=== PATIENT | male | born 1960 | race Caucasian/White ===

== ENCOUNTER → 2016-12-06 | Outpatient (CLI) | payer OTHER ==
[~2016-12-06] VITALS: Ht 162.6 cm; Wt 102.5 kg
[~2016-12-06] MED LIST: AMLO10TA2 PO; ATOR-26 PO; CRG125 PO; DEXT4CHW60 PO; INSDGI SC; LISI-725 PO; METF-384 PO; NVLGI SC; PLV75 PO; PROB500T8 PO
[2016-12-06 10:15] VITALS: BP 159/83; PULSE 97; Ht 162.6 cm; Wt 102.5 kg
== END | disposition home or self-care (01) ==
LOC: C.NEUR 09:05
PROVIDERS: ATTEND Internal Medicine Pulmonary Disease
DX: G47.33 Obstructive sleep apnea (adult) (pediatric) (principal)

== ENCOUNTER → 2017-12-06 | Outpatient (CLI) | payer OTHER ==
[~2017-12-06] VITALS: Ht 162.6 cm; Wt 104.9 kg
[2017-12-06 11:35] VITALS: BP 145/82; PULSE 82; Ht 162.6 cm; Wt 104.9 kg
== END | disposition home or self-care (01) ==
LOC: C.NEUR 09:22
PROVIDERS: ATTEND Internal Medicine Pulmonary Disease
DX: G47.33 Obstructive sleep apnea (adult) (pediatric) (principal)

== ENCOUNTER 2017-12-27 08:52 | Emergency (ER) | payer OTHER ==
[~2017-12-27] VITALS: Ht 162.6 cm; Wt 105.1 kg
[2017-12-27 09:02] VITALS: TEMP 37.1; Ht 162.6 cm; Wt 105.1 kg
[2017-12-27] MEDS ORDERED: NAPR1TAB9 PO (09:35)
[2017-12-27] MEDS ORDERED: CARV12.52 PO (09:39)
--- NOTE | 2017-12-27 10:01 | DIAGNOSTIC IMAGING REPORT ---
L KNEE 3 VIEWS CLINICAL HISTORY: 57 years-old Male presenting with pain. TECHNIQUE: Frontal, lateral, and sunrise views of the left knee were obtained. COMPARISON: Comparison made to plain radiographs of the right knee from 2016. FINDINGS: Minimal osteophytosis at the patellofemoral compartment. Knee joint effusion suggested. No acute fracture or malalignment. Joint space preserved. Atherosclerosis. IMPRESSION: 1. Degenerative changes of the patellofemoral compartment. 2. No acute osseous injury. Electronically signed by: Logan Allen M.D. 12/27/2017 10:00 AM Dictated Date/Time: 12/27/2017 9:59 AM
[2017-12-27 11:27] VITALS: BP 170/101; PULSE 98; O2SAT 96
--- NOTE | 2017-12-27 17:51 | EMERGENCY ROOM VISIT NOTE ---
ED Visit Note First contact with patient: 09:35 Chief Complaint: Left knee pain. History of Present Illness: Mr. Chapman is a 57-year-old white male who ambulates limping into the ED complaining of left lateral knee pain. Historically patient reports she has had no previous significant knee injuries or surgeries. Patient reports approximately 2-3 days ago he felt like his knee was going to buckle. He went out and brought a brace for his knee for support but he continued to have the same sensations. Patient reports when he was walking upstairs today to come to work he had an acute onset of severe pain. Patient reports approximately 2 hours while walking up the stairs he reports he started having pain over the lateral aspect of the knee that he describes "as if someone hit it with a sledgehammer." Since that time his pain has been constant. He places his discomfort over the lateral joint line. He rates his discomfort 9/10. His pain is nonradiating. His pain worsens with the last few degrees of extension, hyperextension and flexion beyond 90. He has not identified any alleviating factors related to the pain. He has been taken Aleve with minimal relief. 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 He denies back pain, hip pain, thigh pain, lower leg pain, ankle pain, foot pain , hip, ankle and foot weakness, leg weakness/numbness/tingling, recent direct or repetitive trauma. Review of Systems: As noted above in history of present illness. 8 body systems were reviewed and found to be negative as noted above. Past Medical History: Diabetes, heart disease, hypertension. Current Medications: Glucophage, Norvasc, NovoLog, Lantus, Zestril, glucose, Coreg, Aleve, Clopidogrel, Benemid. Allergies to Medications: Patient denies. Social History: Patient is currently employed; he feels safe in his home environment; he denies tobacco and alcohol use. Physical Examination: Vital Signs: Date Time Temp Pulse Resp B/P (MAP) Pulse Ox O2 Delivery O2 Flow Rate FiO2 12/27/17 11:27 98 170/101 96 12/27/17 09:02 37.1 109 17 196/81 95 Room Air GENERAL: 57-year-old male in mild to moderate distress due to pain, nontoxic- appearing, afebrile and hemodynamically stable. NEUROLOGICAL: Awake, alert and oriented to person, place and time. Answering questions appropriately and following commands. Good hand eye coordination. SKIN: Warm, dry and pink. No soft tissue eruptions or trauma noted. LEFT LOWER EXTREMITY: No gross bony deformity. No shortening or malrotation. No tenderness in the hip, thigh, lower leg, ankle or foot. Moderate tenderness over the lateral joint line with mild swelling. No bony deformity, bony crepitus, ecchymosis. Decreased range of motion in the knee as previously noted. Negative ballottement test. Questionable bounce test. Minimal laxity of the lateral collateral ligament. No laxity of the cruciate or medial collateral ligament. Throughout the lower leg the skin was warm pink with good capillary refill. Distal pulses are intact. Light sensation is intact. ED Course: Patient is assessed as noted above. Patient's medication list was reviewed. Patient was offered pain medication and refused. Left Knee X-Rays: Was read by myself and the radiologist showing no acute fractures or dislocations. Minimal osteophytosis of the patellofemoral compartment. No joint effusion. Joint space well preserved. Patient was placed in a knee immobilizer and on nonweightbearing crutches. Patient was educated about today's findings and instructed on his treatment plan ; he verbalizes understanding and agreement with this plan. Clinical Impression: Lateral collateral ligament sprain. Decision-Making: Initially my differential diagnosis I considered muscle sprain , contusion, ligamentous strain, degenerative joint disease, fracture, dislocation and other causes. Disposition: Patient discharged home in stable condition; prior to departure he was reassessed and subjectively reported he was feeling much better and rated his discomfort 2/10. Plan: Comfort measures were discussed with the patient including alternating ibuprofen and acetaminophen every 3 hours as needed for pain, ice on areas of pain 5-6 times a day, knee immobilizer and nonweightbearing crutch use. Patient was encouraged to follow-up with [facility] for recheck if no better in 7-10 days. Patient was encouraged to return the ED for worsening/uncontrolled pain, uncontrolled swelling, leg weakness/numbness/tingling or any new/concerning symptoms.
== END 2017-12-27 11:00 | disposition home or self-care (01) ==
LOC: C.EDB 08:54 → C.EDA 11:00
DX: S83.422A Sprain of lateral collateral ligament of left knee, initial encounter (principal); X58.XXXA Exposure to other specified factors, initial encounter; Y93.01 Activity, walking, marching and hiking; Y99.0 Civilian activity done for income or pay; E11.9 Type 2 diabetes mellitus without complications; Z79.4 Long term (current) use of insulin; I11.9 Hypertensive heart disease without heart failure; Z79.02 Long term (current) use of antithrombotics/antiplatelets

== ENCOUNTER 2020-11-05 23:28 | Observation (INO) ==
[2020-11-05] MEDS ORDERED: ASPIRIN 81 MG CHEW PO STA (23:39)
[2020-11-05] MEDS ORDERED: NITROGLYCERIN 2% OINTMENT 30GM TUBE EXT ONE (23:39)
[2020-11-05] MEDS ORDERED: NITROGLYCERIN SL 0.4 MG/TAB TAB SL STA (23:39)
--- NOTE | 2020-11-05 23:48 | Emergency Department Note ---
Impression & Plan Substernal chest pain ED Provider Note Name: IRVING TAPIA Age: 60 Sex: M Arrives Via: Walk-In Informant: Patient ED Provider: Jasvir Ponce MD Chief Complaint: Chest Pain Impression: Substernal Chest Pain Medical Decision Makin yr old male with DMII, CAD, HTN, Gout, HLD, Myxofibrosarcoma arrives with intermittent substernal chest pain increasing since this morning. History cardiac stent 5 yrs ago without intervention since. EKG without ischemia. SLNTG given with improvement in symptoms. ASA given. Initial trop and other labs OK. CXR clear. Note consistent with PE nor dissection. Stable. No evidence of infection on examination nor work up. Hospitalist consulted given high risk ACS, though hole on heparing given initial work-up findings. Prior Medical Record and Triage/Nursing Notes reviewed by Me Additional history obtained from chart and registered dietician notes Differentials:Cardiac ischemia, aortic dissection, pulmonary embolism, pneumothorax, pneumonia, pericarditis, myocarditis, esophageal rupture, GERD, cholecystitis, pancreatitis, musculoskeletal, as well as other pathologies. Vital Signs: reviewed and remarkable for HTN Interventions: SLNTG, ASA 324mg PO Labs:Reviewed and remarkable for no significant abnormalities Imaging:X ray results are stated below per my interpretation: Chest: 1 view: No infiltrate, no effusion, normal cardiac border. EKG:Per My Interpretation: Indication chest pain: NSR 81 bpm, qtc 429, this is mild qrs widening. No Ectopy. No Ischemia. Compared to EKG 12/31/19, no significant changes. Cardiac/Tele Monitoring: Cardiac Monitoring: An Order was placed for continuous cardiac monitoring. The monitor shows a rate of 80 with a normal sinus rhythm. Consults:Dr Braxton WILL Hospitalist Plan: Disposition:Hospitalization. Condition: Good History of Present Illness:60 yr old male with history DMII, CAD, HTN, Gout, HLD, Myxofibrosarcoma arrives for evaluation of chest pain. Patient notes 12 hours of intermittent gradually worsening chest pain. Notes substernal and radiates a bit to back. Sharp and tight in nature. Better with rest, worse with exertion and deep breath. No radiation to arm/leg/jaw. Denies syncope, palpitations, nausea, vomiting, syncope, abdominal pain, low back pain, new leg swelling, headache, neck pain, fevers, chills, cough, shortness of breath, urina ry/bowel changes, nor other symptoms. SLNTG prior to arrival improvement of chest pain. History of CAD with [place] 2016 with stent placed. Notes he was feeling well prior to this morning. The last week he was feeling well without REINOSO nor other symptoms. No known covid exposures. Patient admits BSG running in 200s recently ROS: See above HPI for pertinent positives & negatives. A total of 10 systems reviewed and were otherwise negative. 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 EYES: No scleral icterus, unremarkable pupils. ENT: Mucous membranes moist, no nasal congestion. NECK: No masses appreciated, nomeningismus, trachea is midline. RESPIRATORY: No dyspnea. Clear to auscultation and equal bilaterally. No wheeze, no rhonchi. CARDIOVASCULAR: Regular rate and rhythm.No murmurs, rubs, gallops appreciated. GASTROINTESTINAL: Abdomen soft, non-tender, no peritonitis.Bowel sounds positive.No masses appreciated. BACK: No midline tenderness, no CVA tenderness EXTREMITIES: Normal motion all extremities, no cyanosis, mild bilateral lower leg edema. NEUROLOGIC: Alert and oriented, no acute motor or sensory deficits, no focal weakness, cranial nerves grossly intact. SKIN: No rash, no jaundice, no diaphoresis. PSYCH: Appropriate GCS: 15 ED Course: Times/Reassessments: Stable, feeling improved post SLNTG. 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 Other Information That Helps Us Care for You: No Feels Safe at Home: Yes Safety Concerns: Feels Safe At This Time Assistive Devices: CPAP Allergies Allergies Allergy/AdvReac Type Severity Reaction Status Date / Time No Known Drug Allergies Allergy Unknown Verified 11/05/20 23:46 Home Meds Home Medications Medication Instructions Recorded Confirmed amlodipine 10 mg tablet 10 mg PO DAILY #30 tab 07/25/19 11/05/20 aspirin 81 mg tablet,delayed 81 mg PO DAILY #30 tab 07/25/19 11/05/20 release furosemide 40 mg tablet 40 mg PO DAILY tab 07/25/19 11/05/20 lisinopril 40 mg tablet 40 mg PO DAILY tab 07/25/19 11/05/20 metformin 1,000 mg tablet 1,000 mg PO BID tab 07/25/19 11/05/20 multivitamin 1 tab PO DAILY 07/25/19 11/05/20 probenecid 500 mg tablet 500 mg PO BID tab 07/25/19 11/05/20 carvedilol 25 mg tablet 50 mg PO BID tab 11/06/19 11/05/20 atorvastatin 80 mg tablet 40 mg PO QPM tab 12/31/19 11/05/20 glucose 4 gram chewable tablet 4 gm PO Q15M PRN 12/31/19 11/05/20 isosorbide mononitrate 60 mg 30 mg PO DAILY tab 12/31/19 11/05/20 tablet,extended release 24 hr insulin aspart U-100 100 unit/mL See Rx Instructions SQ DAILY ml 02/25/20 11/05/20 (3 mL) subcutaneous pen insulin glargine 100 unit/mL 36 units SQ HS ml 02/25/20 11/05/20 subcutaneous solution spironolactone 25 mg tablet 25 mg PO DAILY 02/25/20 11/05/20 Results & Data (ED) Vital Signs Vital Signs - 24 hr 11/05/20 23:30 11/05/20 23:39 11/06/20 00:00 Temperature 37.3 C Temperature Source Temporal Artery Scan Pulse Rate 87 78 79 Pulse Rate from SpO2 Sensor 78 78 Respiratory Rate 18 22 24 Respiratory Effort / Characteristics Non-Labored Respiratory Depth Normal Blood Pressure 176/84 H 175/92 H 130/78 Blood Pressure Mean 114 120 92 Pulse Oximetry 98 97 96 Oxygen Delivery Method Room Air Room Air Room Air Sepsis Recent Fever Within 48 Hours No Sepsis New/Unexplained Change in Mental Status No Sepsis Action Taken by Nursing No Action Required 11/06/20 00:30 Temperature Temperature Source Pulse Rate 73 Pulse Rate from SpO2 Sensor 73 Respiratory Rate 24 Respiratory Effort / Characteristics Respiratory Depth Blood Pressure 142/84 H Blood Pressure Mean 94 Pulse Oximetry 96 Oxygen Delivery Method Room Air Sepsis Recent Fever Within 48 Hours Sepsis New/Unexplained Change in Mental Status Sepsis Action Taken by Nursing Laboratory Data Result diagrams: 11/05/20 23:42 11/05/20 23:42 Lab Results 11/05/20 11/05/20 11/05/20 Range/Units 23:42 23:42 23:42 WBC 12.22 H (4.8-10.8) K/uL RBC 4.66 L (4.7-6.1) M/uL Hgb 13.5 L (14.0-18.0) g/dL Hct 41.0 L (42-52) % MCV 88.0 (80-100) fL MCH 29.0 (25-34) pg MCHC 32.9 (32-36) g/dL RDW Std Deviation 45.4 (36.4-46.3) fL RDW Coeff of Nemo 14.1 (11.5-14.5) % Plt Count 352 (130-400) K/uL MPV 9.7 (7.4-10.4) fL Immature Gran % (Auto) 0.2 % Neut % (Auto) 62.3 % Lymph % (Auto) 24.1 % Morris % (Auto) 10.7 % Eos % (Auto) 2.4 % Baso % (Auto) 0.3 % Neut # (Auto) 7.62 H (1.4-6.5) K/uL Lymph # (Auto) 2.94 (1.2-3.4) K/uL Morris # (Auto) 1.31 H (0.11-0.59) K/uL Eos # (Auto) 0.29 (0-0.5) K/uL Baso # (Auto) 0.04 (0-0.2) K/uL Immature Gran # (Auto) 0.02 (0.00-0.02) K/uL PT 12.0 (9.0-12.0) Seconds INR 1.1 (0.9-1.1) APTT 25.4 (21.0-31.0) Seconds PTT Ratio 0.9 D-Dimer 340 (0-500) ug/L FEU Sodium 136 (136-145) mmol/L Potassium 3.8 (3.5-5.1) mmol/L Chloride 102 (98-107) mmol/L Carbon Dioxide 28 (21-32) mmol/L Anion Gap 7.0 (3-11) BUN 25 H (7-18) mg/dl Creatinine 1.49 H (0.6-1.4) mg/dl Est Cr Clr Drug Dosing 58.2 ml/min Est GFR ( Amer) 58.7 Est GFR (Non-Af Amer) 50.6 BUN/Creatinine Ratio 17.0 (10-20) Glucose 164 H (70-99) mg/dl Calcium 10.6 H (8.5-10.1) mg/dl Magnesium 2.0 (1.8-2.4) mg/dl Total Bilirubin 0.6 (0.2-1) mg/dl Direct Bilirubin 0.3 H (0-0.2) mg/dl AST 13 L (15-37) U/L ALT 32 (12-78) U/L Alkaline Phosphatase 111 (45-117) U/L Troponin I < 0.015 (0-0.045) ng/ml Total Protein 8.5 H (6.4-8.2) gm/dl Albumin 4.0 (3.4-5.0) gm/dl Lipase 571 H (73-393) U/L COVID-19 Eval Order SARS-CoV-2, RNA, NAAT (NEGATIVE) 11/06/20 11/06/20 Range/Units 00:00 00:00 WBC (4.8-10.8) K/uL RBC (4.7-6.1) M/uL Hgb (14.0-18.0) g/dL Hct (42-52) % MCV (80-100) fL MCH (25-34) pg MCHC (32-36) g/dL RDW Std Deviation (36.4-46.3) fL RDW Coeff of Nemo (11.5-14.5) % Plt Count (130-400) K/uL MPV (7.4-10.4) fL Immature Gran % (Auto) % Neut % (Auto) % Lymph % (Auto) % Morris % (Auto) % Eos % (Auto) % Baso % (Auto) % Neut # (Auto) (1.4-6.5) K/uL Lymph # (Auto) (1.2-3.4) K/uL Morris # (Auto) (0.11-0.59) K/uL Eos # (Auto) (0-0.5) K/uL Baso # (Auto) (0-0.2) K/uL Immature Gran # (Auto) (0.00-0.02) K/uL PT (9.0-12.0) Seconds INR (0.9-1.1) APTT (21.0-31.0) Seconds PTT Ratio D-Dimer (0-500) ug/L FEU Sodium (136-145) mmol/L Potassium (3.5-5.1) mmol/L Chloride (98-107) mmol/L Carbon Dioxide (21-32) mmol/L Anion Gap (3-11) BUN (7-18) mg/dl Creatinine (0.6-1.4) mg/dl Est Cr Clr Drug Dosing ml/min Est GFR ( Amer) Est GFR (Non-Af Amer) BUN/Creatinine Ratio (10-20) Glucose (70-99) mg/dl Calcium (8.5-10.1) mg/dl Magnesium (1.8-2.4) mg/dl Total Bilirubin (0.2-1) mg/dl Direct Bilirubin (0-0.2) mg/dl AST (15-37) U/L ALT (12-78) U/L Alkaline Phosphatase (45-117) U/L Troponin I (0-0.045) ng/ml Total Protein (6.4-8.2) gm/dl Albumin (3.4-5.0) gm/dl Lipase (73-393) U/L COVID-19 Eval [facility] SARS-CoV-2, RNA, NAAT NEGATIVE (NEGATIVE) Administered Medications Sodium Chloride (Nss 1000ml) 1,000 mls @ 80 mls/hr IV .[id number] AMBER Stop: 11/06/20 14:04 Last Admin: 11/06/20 02:15 Dose: 80 mls/hr Documented by: [id number] Discontinued Medications Aspirin (Aspirin 81 Mg Chew) 324 mg PO NOW STA Stop: 11/05/20 23:40 Last Admin: 11/05/20 23:45 Dose: 324 mg Documented by: [id number] Nitroglycerin (Nitroglycerin Sl 0.4 Mg/Tab Tab) 0.4 mg SL NOW STA Stop: 11/05/20 23:40 Last Admin: 11/05/20 23:47 Dose: 0.4 mg Documented by: [id number] Nitroglycerin (Nitroglycerin 2% Ointment 30gm Tube) 1 inch EXT NOW ONE Stop: 11/05/20 23:40 Last Admin: 11/05/20 23:46 Dose: 1 inch Documented by: [id number] Discharge Plan Visit Data Chief Complaint: Chest Pain Stated Complaint: CHEST PAIN ED Provider: Jasvir Ponce Discharge Problem: Substernal chest pain Patient Disposition: Admitted As Inpatient Discharge Instructions Interventions: ED Discharge Assessment Last Done: 11/06/20 01:30
[2020-11-05 23:55] LABS: Basophils # (auto) 0.04 K/uL (0-0.2); Basophils % (auto) 0.3 %; Eosinophils # (auto) 0.29 K/uL (0-0.5); Eosinophils % (auto) 2.4 %; Hemoglobin 13.5 g/dL (14.0-18.0); Immature Granulocytes # (auto) 0.02 K/uL (0.00-0.02); Immature Granulocytes % (auto) 0.2 %; Lymphocytes # (auto) 2.94 K/uL (1.2-3.4); Lymphocytes % (auto) 24.1 %; Mean Corpuscular Hgb Conc 32.9 g/dL (32-36); Mean Platelet Volume 9.7 fL (7.4-10.4); Monocytes # (auto) 1.31 K/uL (0.11-0.59); Monocytes % (auto) 10.7 %; Neutrophils # (auto) 7.62 K/uL (1.4-6.5); Neutrophils % (auto) 62.3 %; Platelet Count 352 K/uL (130-400); RDW Coefficient of Variation 14.1 % (11.5-14.5); RDW Standard Deviation 45.4 fL (36.4-46.3); Red Blood Count 4.66 M/uL (4.7-6.1); White Blood Count 12.22 K/uL (4.8-10.8)
[2020-11-06 00:07] LABS: D Dimer 340 ug/L FEU (0-500); INR 1.1 (0.9-1.1); Partial Thromboplastin Ratio 0.9; Partial Thromboplastin Time 25.4 Seconds (21.0-31.0)
[2020-11-06 00:17] LABS: Alanine Aminotransferase 32 U/L (12-78); Aspartate Aminotransferase 13 U/L (15-37); Bilirubin Direct 0.3 mg/dl (0-0.2); Blood Urea Nitrogen 25 mg/dl (7-18); Calcium 10.6 mg/dl (8.5-10.1); Carbon Dioxide 28 mmol/L (21-32); Chloride 102 mmol/L (98-107); Creatinine Clr Calc Pharmacy 58.2 ml/min; Est GFR (African American) 58.7; Est GFR (Non-African American) 50.6; Glucose 164 mg/dl (70-99); Lipase 571 U/L (73-393); Potassium 3.8 mmol/L (3.5-5.1); Sodium 136 mmol/L (136-145)
[2020-11-06 00:22] LABS: Alkaline Phosphatase 111 U/L (45-117); Bilirubin,Total 0.6 mg/dl (0.2-1); Total Protein 8.5 gm/dl (6.4-8.2); Troponin I < 0.015 ng/ml (0-0.045)
[2020-11-06] MEDS ORDERED: GLUCOSE 40% GEL 15 GM TUBE PO PRN (01:35)
[2020-11-06] MEDS ORDERED: SODIUM CHLORIDE 0.9% 1000ML 1,000 ML IV SCH (01:35)
[2020-11-06] MEDS ORDERED: CARBOHYDRATES FOR HYPOGLYCEMIA PO PRN (01:35)
[2020-11-06] MEDS ORDERED: GLUCOSE 10 TABS/TUBE PO PRN (01:35)
[2020-11-06] MEDS ORDERED: MoRPHine SULFATE 2 MG/ML CARP IV PRN (01:35)
[2020-11-06] MEDS ORDERED: DEXTROSE 50% 50 ML SYRINGE IV PRN (01:35)
[2020-11-06] MEDS ORDERED: GLUCAGON FOR INJ 1 MG VIAL SQ PRN (01:35)
[2020-11-06] MEDS ORDERED: ONDANSETRON INJ 2 MG/ML 2 ML VIAL IV PRN (01:35)
[2020-11-06] MEDS ORDERED: ACETAMINOPHEN 325 MG TAB PO PRN (01:35)
--- NOTE | 2020-11-06 02:59 | History & Physical Report ---
Date of Service November 06, 2020 Assessment & Plan (1) Unstable angina: Unstable angina/CAD/PCI in 2016/hypertension- The patient will be admitted to telemetry for serial cardiac enzymes, serial EKG's, cardiac rhythm monitoring and a 2-D echocardiogram with Dopplers. Continue amlodipine 10 mg daily, aspirin 81 mg daily, carvedilol 50 mg p.o. twice daily, isosorbide mononitrate extended release 30 mg every morning and lisinopril 40 mg p.o. daily. Temporarily hold furosemide and spironolactone due to acute kidney injury. Nitropaste 1 inch anterior chest wall every 6 hours. Nitroglycerin sublingual Every 5 minutes as needed chest pain Consult his blower operator Dr. Oseas Root. Present on Admission?: Yes (2) CAD in [place] artery: See above Present on Admission?: Yes (3) History of heart artery stent: See above Present on Admission?: Yes (4) Hypertension: See above Present on Admission?: Yes (5) Acute kidney injury: Creatinine 1.49 upon admission, with baseline 1.2. Give 1 L normal saline at 100 mils per hour. Hold furosemide and spironolactone for now Present on Admission?: Yes (6) Diabetes: Continue Lantus insulin 36 units subcu at bedtime. Hold Metformin. Placed on Accu-Cheks before meals and at bedtime with NovoLog coverage per scale Present on Admission?: Yes (7) Pure hypercholesterolemia: Continue atorvastatin 40 mg every evening. Check a fasting lipid panel Present on Admission?: Yes (8) Gout: Continue probenecid Present on Admission?: Yes (9) Obstructive sleep apnea: Will use CPAP at at bedtime as needed Present on Admission?: Yes Admission and Anticipated Discharge Date Admission Date: November 06, 2020 History of Present Illness Chief Complaint: The patient presents to the emergency department with report of acute onset of substernal chest pain that began around 10:00 this morning, and has been persistent throughout the day, with worsening symptoms this evening. Primary Care Provider: Oseas Root MD The patient is a 60-year-old male with a past medical history including myxofibrosarcoma of skin, CAD of [place] coronary artery, gout, [place], hypercholesterolemia, diabetes mellitus, hypertension, stented coronary artery, and presyncope. The patient presents to the emergency department symptoms as noted above. Allergies Allergy/AdvReac Type Severity Reaction Status Date / Time No Known Drug Allergies Allergy Unknown Verified 11/05/20 23:46 Home Medications Medication Instructions Recorded Confirmed Type amlodipine 10 mg tablet 10 mg PO DAILY #30 tab 07/25/19 11/05/20 History aspirin 81 mg tablet,delayed 81 mg PO DAILY #30 tab 07/25/19 11/05/20 History release furosemide 40 mg tablet 40 mg PO DAILY tab 07/25/19 11/05/20 History lisinopril 40 mg tablet 40 mg PO DAILY tab 07/25/19 11/05/20 History metformin 1,000 mg tablet 1,000 mg PO BID tab 07/25/19 11/05/20 History multivitamin 1 tab PO DAILY 07/25/19 11/05/20 History probenecid 500 mg tablet 500 mg PO BID tab 07/25/19 11/05/20 History carvedilol 25 mg tablet 50 mg PO BID tab 11/06/19 11/05/20 History atorvastatin 80 mg tablet 40 mg PO QPM tab 12/31/19 11/05/20 History glucose 4 gram chewable tablet 4 gm PO Q15M PRN 12/31/19 11/05/20 History isosorbide mononitrate 60 mg 30 mg PO DAILY tab 12/31/19 11/05/20 History tablet,extended release 24 hr insulin aspart U-100 100 unit/mL See Rx Instructions SQ DAILY ml 02/25/20 11/05/20 History (3 mL) subcutaneous pen insulin glargine 100 unit/mL 36 units SQ HS ml 02/25/20 11/05/20 History subcutaneous solution spironolactone 25 mg tablet 25 mg PO DAILY 02/25/20 11/05/20 History Past Med/Surg History Medical History (Updated 11/06/20 @ 02:53 by Thierry Limon MD) Myxofibrosarcoma of skin Family History Sister Breast cancer Diabetes Heart disease Social History Smoking Status: Never smoker Second Hand Exposure: No; Do You Dip or Chew Tobacco: No; Hx Alcohol Use: Yes Hx Substance Use: No Preferred Language: Hebrew Communication Ability: Effective Beliefs That Will Affect Care: None marital status: Single Current Living Situation: Family current occupational status: employed 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 Other Information That Helps Us Care for You: No Feels Safe at Home: Yes Safety Concerns: Feels Safe At This Time Assistive Devices: CPAP Review of Systems Review of Systems: The patient denies palpitations, shortness of breath, dyspnea on exertion, cough, lower extremity swelling, sore throat, fevers, chills, sweats, weight change, fatigue, nausea, vomiting, diarrhea , constipation, abdominal pain, pelvic pain, blood in urine or stool, dysuria, urinary frequency or urgency, lightheadedness, dizziness, headache, memory loss, loss of consciousness, rash, abnormal bruising or bleeding, imbalance, focal or generalized weakness, numbness or tingling in arms or legs, generalized arthralgias or myalgias, back or neck pain, or night sweats. The review of systems is otherwise negative other than for that already noted above, and at least 10 systems have been reviewed. Physical Exam Physical Exam: The patient is awake, alert and oriented 3, well developed and well nourished, normocephalic and atraumatic, lying in bed and in no acute distress. HEENT--PERRL, EOMI, mucous membranes and oropharynx normal. Neck--supple. No JVD. No bruits. Thyroid normal, trachea midline, no adenopathy. Heart--normal S1 and S2. No murmurs, rubs or gallops. Lungs--clear bilaterally, no respiratory distress, no accessory muscle use. Abdomen--normal bowel sounds and soft. Nontender. Nondistended. Obese Extremities--no cyanosis or clubbing. No edema. Dermatologic--normal skin turgor, normal color, no abnormal lymph nodes, no rash. Neurologic--cranial nerves II through XII grossly intact. Rheumatologic--normal range of motion. Psychiatric--normal affect. Results & Data Results & Data ([facility]) Vital Signs (Past 12 Hours) Vital Signs Temp Pulse Resp BP Pulse Ox 11/06/20 02:40 68 11/06/20 01:52 97.9 F 95 11/06/20 01:30 73 18 154/75 H 95 11/06/20 00:30 73 24 142/84 H 96 11/06/20 00:00 79 24 130/78 96 11/05/20 23:39 78 22 175/92 H 97 11/05/20 23:30 99.1 F 87 18 176/84 H 98 Laboratory Results Laboratory Results WBC 12.22 K/uL (4.8-10.8) H 11/05/20 23:42 RBC 4.66 M/uL (4.7-6.1) L 11/05/20 23:42 Hgb 13.5 g/dL (14.0-18.0) L 11/05/20 23:42 Hct 41.0 % (42-52) L 11/05/20 23:42 MCV 88.0 fL (80-100) 11/05/20 23:42 MCH 29.0 pg (25-34) 11/05/20 23:42 MCHC 32.9 g/dL (32-36) 11/05/20 23:42 RDW Std Deviation 45.4 fL (36.4-46.3) 11/05/20 23:42 RDW Coeff of [place] 14.1 % (11.5-14.5) 11/05/20 23:42 Plt Count 352 K/uL (130-400) 11/05/20 23:42 MPV 9.7 fL (7.4-10.4) 11/05/20 23:42 Immature Gran % (Auto) 0.2 % 11/05/20 23:42 Neut % (Auto) 62.3 % 11/05/20 23:42 Lymph % (Auto) 24.1 % 11/05/20 23:42 [place] % (Auto) 10.7 % 11/05/20 23:42 Eos % (Auto) 2.4 % 11/05/20 23:42 Baso % (Auto) 0.3 % 11/05/20 23:42 Neut # (Auto) 7.62 K/uL (1.4-6.5) H 11/05/20 23:42 Lymph # (Auto) 2.94 K/uL (1.2-3.4) 11/05/20 23:42 [place] # (Auto) 1.31 K/uL (0.11-0.59) H 11/05/20 23:42 Eos # (Auto) 0.29 K/uL (0-0.5) 11/05/20 23:42 Baso # (Auto) 0.04 K/uL (0-0.2) 11/05/20 23:42 Immature Gran # (Auto) 0.02 K/uL (0.00-0.02) 11/05/20 23:42 PT 12.0 Seconds (9.0-12.0) 11/05/20 23:42 INR 1.1 (0.9-1.1) 11/05/20 23:42 APTT 25.4 Seconds (21.0-31.0) 11/05/20 23:42 PTT Ratio 0.9 11/05/20 23:42 D-Dimer 340 ug/L FEU (0-500) 11/05/20 23:42 Sodium 136 mmol/L (136-145) 11/05/20 23:42 Potassium 3.8 mmol/L (3.5-5.1) 11/05/20 23:42 Chloride 102 mmol/L (98-107) 11/05/20 23:42 Carbon Dioxide 28 mmol/L (21-32) 11/05/20 23:42 Anion Gap 7.0 (3-11) 11/05/20 23:42 BUN 25 mg/dl (7-18) H 11/05/20 23:42 Creatinine 1.49 mg/dl (0.6-1.4) H 11/05/20 23:42 Est Cr Clr Drug Dosing 58.2 ml/min 11/05/20 23:42 Est GFR ( Amer) 58.7 11/05/20 23:42 Est GFR (Non-Af Amer) 50.6 11/05/20 23:42 BUN/Creatinine Ratio 17.0 (10-20) 11/05/20 23:42 Glucose 164 mg/dl (70-99) H 11/05/20 23:42 Calcium 10.6 mg/dl (8.5-10.1) H 11/05/20 23:42 Magnesium 2.0 mg/dl (1.8-2.4) 11/05/20 23:42 Total Bilirubin 0.6 mg/dl (0.2-1) 11/05/20 23:42 Direct Bilirubin 0.3 mg/dl (0-0.2) H 11/05/20 23:42 AST 13 U/L (15-37) L 11/05/20 23:42 ALT 32 U/L (12-78) 11/05/20 23:42 Alkaline Phosphatase 111 U/L (45-117) 11/05/20 23:42 Troponin I < 0.015 ng/ml (0-0.045) 11/05/20 23:42 Total Protein 8.5 gm/dl (6.4-8.2) H 11/05/20 23:42 Albumin 4.0 gm/dl (3.4-5.0) 11/05/20 23:42 Lipase 571 U/L (73-393) H 11/05/20 23:42 COVID-19 Eval Order Covid19 [facility] 11/06/20 00:00 SARS-CoV-2, RNA, NAAT NEGATIVE (NEGATIVE) 11/06/20 00:00 Code Status & VTE Plan Code Status Full code VTE Prophylaxis Plan VTE Prophylaxis will be ordered: Yes PG Care Time/CCT Total # of Minutes Spent Total Time Spent with Patient: Total time spent is greater than 50% in coordination of care (as documented) at patient's floor/unit and/or counseling patient: Coding Level of Care Code 58433 Initial Inpt Care Lvl 3 Diagnoses Unstable angina I20.0 CAD in [place] artery I25.10 History of heart artery stent Z95.5 Hypertension I10 Acute kidney injury N17.9 Diabetes E11.9 Pure hypercholesterolemia E78.00 Gout M10.9 Obstructive sleep apnea G47.33
[2020-11-06 05:41] LABS: Albumin Level 3.5 gm/dl (3.4-5.0); BUN Creatinine Ratio 17.7 (10-20); Blood Urea Nitrogen 24 mg/dl (7-18); Calcium 9.6 mg/dl (8.5-10.1); Carbon Dioxide 30 mmol/L (21-32); Chloride 106 mmol/L (98-107); Creatinine Clr Calc Pharmacy 62.9 ml/min; Est GFR (African American) 64.4; Est GFR (Non-African American) 55.6; Glucose 124 mg/dl (70-99); Magnesium 2.2 mg/dl (1.8-2.4); Potassium 4.1 mmol/L (3.5-5.1); Sodium 140 mmol/L (136-145)
[2020-11-06 05:46] LABS: Phosphorus 4.7 mg/dl (2.5-4.9); Troponin I < 0.015 ng/ml (0-0.045)
[2020-11-06] MEDS: NITROGLYCERIN 2% OINTMENT 30GM TUBE EXT SCH ×3 (05:51→18:08)
[2020-11-06 06:07] LABS: Estimated Average Glucose 200 mg/dl; Hemoglobin A1C 8.6 % (4.5-5.6)
[2020-11-06] MEDS: INSULIN ASPART 100 UNITS/ML 3 ML PEN SC SCH ×4 (07:48→20:26)
--- NOTE | 2020-11-06 07:54 | Electrocardiogram Report ---
Test Reason : Blood Pressure : / mmHG Vent. Rate : 081 BPM Atrial Rate : 081 BPM P-R Int : 194 ms QRS Dur : 118 ms QT Int : 370 ms P-R-T Axes : 034 -30 098 degrees QTc Int : 429 ms Normal sinus rhythm Left axis deviation Left ventricular hypertrophy with QRS widening and repolarization abnormality Abnormal ECG When compared with ECG of 29-AUG-2016 06:24, QRS duration has increased Nonspecific T wave abnormality no longer evident in Inferior leads Confirmed by Josué Barba ([id number]) on 11/06/2020 7:54:01 AM Referred By: REFERRED SELF Confirmed By:Josué Barba
[2020-11-06] MEDS: ASPIRIN 81 MG ECTAB PO SCH (08:13)
[2020-11-06] MEDS: lisinopril 40 MG TAB PO SCH (08:14)
[2020-11-06] MEDS: PROBENECID 500 MG TAB PO SCH ×2 (08:14→20:19)
[2020-11-06] MEDS: MULTIVITAMIN TAB PO SCH (08:14)
[2020-11-06] MEDS: amLODIPine BESYLATE 5 MG TAB PO SCH (08:14)
[2020-11-06] MEDS: ISOSORBIDE MONO EXTENDED REL 30 MG TABCR PO SCH (08:15)
[2020-11-06] MEDS: FUROSEMIDE 40 MG TAB PO SCH (08:15)
[2020-11-06] MEDS: SPIRONOLACTONE 25 MG TAB PO SCH (08:15)
[2020-11-06] MEDS: carvediloL 25 MG TAB PO SCH ×2 (08:15→20:18)
--- NOTE | 2020-11-06 08:39 | XRay Report ---
XR chest 1V portable HISTORY: 60 years-old Male Chest pain, Shortness of breath acute chest pain with shortness of breath COMPARISON: Chest radiograph 08/28/2016 TECHNIQUE: Portable AP view of the chest FINDINGS: Cardiomediastinal and hilar silhouettes are within normal limits. No pneumothorax, pleural effusion, airspace consolidation or overt pulmonary edema. Bones of the chest appear grossly intact. IMPRESSION: No acute process. ACT 112: Negative or not required by law. The above report was generated using voice recognition software. It may contain grammatical, syntax o r spelling errors. Electronically signed by: Hakeme Vale M.D. 11/06/2020 8:38 AM
[2020-11-06] MEDS ORDERED: INSULIN ASPART 100 UNITS/ML 3 ML PEN SQ SCH (09:00)
[2020-11-06 14:35] LABS: BUN Creatinine Ratio 13.1 (10-20); Blood Urea Nitrogen 21 mg/dl (7-18); Calcium 9.3 mg/dl (8.5-10.1); Carbon Dioxide 31 mmol/L (21-32); Chloride 103 mmol/L (98-107); Creatinine Clr Calc Pharmacy 52.9 ml/min; Est GFR (African American) 52.3; Est GFR (Non-African American) 45.1; Glucose 201 mg/dl (70-99); Potassium 4.3 mmol/L (3.5-5.1); Sodium 137 mmol/L (136-145)
[2020-11-06 14:40] LABS: Troponin I < 0.015 ng/ml (0-0.045)
--- NOTE | 2020-11-06 15:34 | Hospitalist Progress Note ---
Date of Service November 06, 2020 Assessment & Plan (1) Unstable angina: Unstable angina/CAD/PCI in 2016/hypertension- Continue amlodipine 10 mg daily, aspirin 81 mg daily, carvedilol 50 mg p.o. twice daily, isosorbide mononitrate extended release 30 mg every morning and lisinopril 40 mg p.o. daily Temporarily hold furosemide and spironolactone due to acute kidney injury. Nitropaste 1 inch anterior chest wall every 6 hours. Nitroglycerin sublingual Every 5 minutes as needed chest pain ECHO with EF 55-60% and no major wall motion abnormalities Trop neg x3 Awaiting cardiology c/s Of note, lipase with mild elevation at 571 on admission--possibly mild acute pancreatitis causing sx?? No issues with PO (2) CAD in [place] artery: See above (3) History of heart artery stent: See above (4) Hypertension: See above (5) Acute kidney injury: Creatinine 1.49 upon admission, with baseline 1.2. Give 1 L normal saline at 100 mils per hour. Hold furosemide and spironolactone for now Repeat this afternoon is actually higher at 1.6 Resume IVF, but at a lower level given hx of diuretic use that is on hold due to renal function (6) Diabetes: Continue Lantus insulin 36 units subcu at bedtime. Hold Metformin. Placed on Accu-Cheks before meals and at bedtime with NovoLog coverage per scale A1c 8.6 (7) Pure hypercholesterolemia: Continue atorvastatin 40 mg every evening. Check a fasting lipid panel (8) Gout: Continue probenecid (9) Obstructive sleep apnea: Will use CPAP at at bedtime as needed Admission and Anticipated Discharge Date Admission Date: November 06, 2020 Subjective Pt states he continues to have "twinges" of chest pain at rest, but it is nothing like the chest pain he was having [employer]. No SOB with this. Tolerating PO without issue. Pt denies fever, abd pain, n/v/c/d, LE pain or swelling. Review of Systems Review of Systems: Pertinent positives and negatives reviewed in HPI--all others negative Physical Exam Constitutional: WD/WN, vitals as above Eyes: normal visual abel by confrontation and + anicteric sclerae Neck: normal visual inspection and trachea midline Respiratory: normal respiratory effort, lungs clear to auscultation Cardiovascular: Rate/Rhythm: regular rate and regular rhythm Gastrointestinal (Abdomen): Inspection/Auscultation: abdomen not distended Percussion/Palpation: abdomen soft; abdomen nontender Musculoskeletal: Head/Neck/Chest: normocephalic and head atraumatic negative for edema, peripheral pulses intact Skin: no rashes, warm and dry Neurologic: awake; not confused Speech / Cognition: normal speech Psychiatric: A+Ox3, euthymic affect Results & Data Results & Data ([facility]) Vital Signs (Past 12 Hours) Vital Signs Temp Pulse Pulse Pulse Resp BP Pulse Ox 11/06/20 12:00 36.7 C 66 20 117/75 95 11/06/20 08:00 88 11/06/20 07:21 36.7 C 73 18 159/82 H 94 11/06/20 03:49 36.5 C 75 18 134/73 95 PG Care Time/CCT Total # of Minutes Spent Total Time Spent with Patient: Total time spent is greater than 50% in coordination of care (as documented) at patient's floor/unit and/or counseling patient: Coding Level of Care Code 62954 Subseq Hosp Care Lvl 3 Diagnoses Unstable angina I20.0 CAD in [place] artery I25.10 History of heart artery stent Z95.5 Hypertension I10 Acute kidney injury N17.9 Diabetes E11.9 Pure hypercholesterolemia E78.00 Gout M10.9 Obstructive sleep apnea G47.33
[2020-11-06] MEDS: SODIUM CHLORIDE 0.9% 1000ML 1,000 ML IV SCH (16:14)
[2020-11-06] MEDS: ATORVASTATIN 40 MG TAB PO SCH (20:18)
[2020-11-06] MEDS: INSULIN GLARGINE SOLOSTAR 100 UNITS/ML 3 ML PEN SQ SCH (20:26)
[2020-11-07] MEDS: NITROGLYCERIN 2% OINTMENT 30GM TUBE EXT SCH ×4 (00:51→17:10)
[2020-11-07 05:40] LABS: Basophils # (auto) 0.03 K/uL (0-0.2); Basophils % (auto) 0.3 %; Eosinophils # (auto) 0.29 K/uL (0-0.5); Eosinophils % (auto) 2.7 %; Hematocrit (blood only) 37.8 % (42-52); Hemoglobin 12.3 g/dL (14.0-18.0); Immature Granulocytes # (auto) 0.03 K/uL (0.00-0.02); Immature Granulocytes % (auto) 0.3 %; Lymphocytes % (auto) 25.9 %; Mean Corpuscular Hemoglobin 28.7 pg (25-34); Mean Corpuscular Hgb Conc 32.5 g/dL (32-36); Mean Corpuscular Volume 88.1 fL (80-100); Mean Platelet Volume 9.6 fL (7.4-10.4); Monocytes # (auto) 0.96 K/uL (0.11-0.59); Monocytes % (auto) 8.9 %; Neutrophils # (auto) 6.69 K/uL (1.4-6.5); Neutrophils % (auto) 61.9 %; Platelet Count 294 K/uL (130-400); RDW Coefficient of Variation 14.1 % (11.5-14.5); RDW Standard Deviation 45.3 fL (36.4-46.3); Red Blood Count 4.29 M/uL (4.7-6.1)
[2020-11-07 06:18] LABS: Albumin Level 3.4 gm/dl (3.4-5.0); Calcium 8.5 mg/dl (8.5-10.1); Creatinine Clr Calc Pharmacy 61.1 ml/min; Est GFR (African American) 62.2; Est GFR (Non-African American) 53.7; Magnesium 2.1 mg/dl (1.8-2.4); Potassium 3.7 mmol/L (3.5-5.1)
[2020-11-07 06:38] LABS: Phosphorus 3.8 mg/dl (2.5-4.9)
[2020-11-07] MEDS: INSULIN ASPART 100 UNITS/ML 3 ML PEN SC SCH ×4 (07:44→21:01)
[2020-11-07] MEDS: SODIUM CHLORIDE 0.9% 1000ML 1,000 ML IV SCH (07:45)
[2020-11-07] MEDS: FUROSEMIDE 40 MG TAB PO SCH (07:51)
[2020-11-07] MEDS: MULTIVITAMIN TAB PO SCH (07:51)
[2020-11-07] MEDS: ASPIRIN 81 MG ECTAB PO SCH (07:52)
[2020-11-07] MEDS: amLODIPine BESYLATE 5 MG TAB PO SCH (07:52)
[2020-11-07] MEDS: SPIRONOLACTONE 25 MG TAB PO SCH (07:53)
[2020-11-07] MEDS: ISOSORBIDE MONO EXTENDED REL 30 MG TABCR PO SCH (07:53)
[2020-11-07] MEDS: carvediloL 25 MG TAB PO SCH ×2 (07:53→21:02)
[2020-11-07] MEDS: lisinopril 40 MG TAB PO SCH (07:54)
[2020-11-07] MEDS: PROBENECID 500 MG TAB PO SCH ×2 (10:02→21:02)
--- NOTE | 2020-11-07 11:12 | Electrocardiogram Report ---
Test Reason : Blood Pressure : / mmHG Vent. Rate : 075 BPM Atrial Rate : 075 BPM P-R Int : 202 ms QRS Dur : 116 ms QT Int : 402 ms P-R-T Axes : 043 -34 091 degrees QTc Int : 448 ms Normal sinus rhythm Left axis deviation Left ventricular hypertrophy with QRS widening Nonspecific T wave abnormality Abnormal ECG When compared with ECG of 05-NOV-2020 23:37, No significant change was found Confirmed by Morgan Leal ([id number]) on 11/07/2020 11:12:38 AM Referred By: REFERRED SELF Confirmed By:Morgan Leal
--- NOTE | 2020-11-07 11:22 | Electrocardiogram Report ---
Test Reason : Blood Pressure : / mmHG Vent. Rate : 068 BPM Atrial Rate : 068 BPM P-R Int : 204 ms QRS Dur : 116 ms QT Int : 436 ms P-R-T Axes : 049 -32 070 degrees QTc Int : 463 ms Normal sinus rhythm Left axis deviation Left ventricular hypertrophy with QRS widening Abnormal ECG When compared with ECG of 06-NOV-2020 20:09, (unconfirmed) No significant change was found Confirmed by Morgan Leal ([id number]) on 11/07/2020 11:21:47 AM Referred By: REFERRED SELF Confirmed By:Morgan Leal
--- NOTE | 2020-11-07 12:56 | Cardiology Consultation ---
Date of Consultation November 07, 2020 Assessment & Plan (1) Substernal chest pain: 2. CADpost RCA stent 08/2016 3. Type 2 diabeteson metformin, insulin, A1c 8 point 4. Hypertension--on 5 agents at home 5. Hyperlipidemia 6. Stage III CKD 7. Obstructive sleep apnea--on CPAP, followed by Dr. Gilman Patient here with recurrent chest pain reminiscent of his prior pain previously resolved with PCI. Cardiac testing since admission negative for active ischemia, myocardial injury. However, with patient's history and multiple ASCVD risk factors feel additional stratification warranted. Discussed options including repeat stress test or proceeding directly with cardiac catheterization. Patient would prefer proceeding with cardiac catheterization states that stress test have always been negative even when had significant disease. Feel this is a reasonable approach and will plan to perform via right radial artery tomorrow a.m. In the interim continue home cardiac regimen which includes 3 antianginals. Continue topical nitrates. Continue aspirin. If recurrent chest pain would start heparin infusion. Keep n.p.o. past midnight. History of Present Illness Attending Physician: Keiko Funez DO History of Present Illness Mr. Chapman is a very pleasant 60-year-old man known to me from the outpatient setting with a history of coronary artery disease post prior PCI to RCA in 2015 admitted with recurrent chest pain. Other medical issues include poorly controlled type 2 diabetes, hypertension, dyslipidemia, obstructive sleep apnea and prior myxofibrosarcoma post resection. In the setting of stable angina last underwent cardiac catheterization 08/2016 at [facility] by Dr. Leon and had a 3.5 x 15 mm Xience FINN placed to his RCA. Reported to have only mild nonculprit disease. Admitted soon after PCI with presyncope with normal echo, Holter monitor at that time. Most recent cardiac testing in 2019 in preop setting prior to myxofibrosarcoma resection. Exercise treadmill negative for ischemia 11/2019, achieved 7.7 METS. Echo 10/2019 mild LVH, EF 50 to 55% with no wall motion abnormalities. Readmitted 11/05/2020 after having stuttering chest pain throughout the day reminiscent of symptoms leading to prior stenting. Went to bed but was then woken up with recurrent chest pain presented to ED. Serial ECGs have been negative. Troponin negative x3. Repeat echocardiogram showed no new wall motion abnormalities. Has had intermittent episodes of chest pain including one episode lasting approximately an hour last night. Allergies Allergy/AdvReac Type Severity Reaction Status Date / Time No Known Drug Allergies Allergy Unknown Verified 11/05/20 23:46 Home Medications Medication Instructions Recorded Confirmed Type amlodipine 10 mg tablet 10 mg PO DAILY #30 tab 07/25/19 11/05/20 History aspirin 81 mg tablet,delayed 81 mg PO DAILY #30 tab 07/25/19 11/05/20 History release furosemide 40 mg tablet 40 mg PO DAILY tab 07/25/19 11/05/20 History lisinopril 40 mg tablet 40 mg PO DAILY tab 07/25/19 11/05/20 History metformin 1,000 mg tablet 1,000 mg PO BID tab 07/25/19 11/05/20 History multivitamin 1 tab PO DAILY 07/25/19 11/05/20 History probenecid 500 mg tablet 500 mg PO BID tab 07/25/19 11/05/20 History carvedilol 25 mg tablet 50 mg PO BID tab 11/06/19 11/05/20 History atorvastatin 80 mg tablet 40 mg PO QPM tab 12/31/19 11/05/20 History glucose 4 gram chewable tablet 4 gm PO Q15M PRN 12/31/19 11/05/20 History isosorbide mononitrate 60 mg 30 mg PO DAILY tab 12/31/19 11/05/20 History tablet,extended release 24 hr insulin aspart U-100 100 unit/mL See Rx Instructions SQ DAILY ml 02/25/20 11/05/20 History (3 mL) subcutaneous pen insulin glargine 100 unit/mL 36 units SQ HS ml 02/25/20 11/05/20 History subcutaneous solution spironolactone 25 mg tablet 25 mg PO DAILY 02/25/20 11/05/20 History Patient History Medical History (Updated 11/06/20 @ 03:00 by Jasvir Ponce MD) Myxofibrosarcoma of skin Family History Sister Breast cancer Diabetes Heart disease Social History Smoking Status: Never smoker Second Hand Exposure: No; Do You Dip or Chew Tobacco: No; Hx Alcohol Use: Yes Hx Substance Use: No Preferred Language: Kinyarwanda Communication Ability: Effective Beliefs That Will Affect Care: None marital status: Single Current Living Situation: Family current occupational status: employed 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 No JVD Vascular: 2+ radial, DP and PT pulses. No Bruits. Abdomen: Soft, nontender Extremities: Well perfused, no peripheral edema Neuro: Nonfocal Psych: Alert orient x3, normal affect and mood Results & Data ([facility]) Vital Signs (Past 12 Hours) Vital Signs Temp Pulse Pulse Resp BP Pulse Ox 11/07/20 11:42 98.1 F 69 20 113/70 93 11/07/20 08:00 62 11/07/20 07:00 98.6 F 68 20 166/87 H 94 11/07/20 03:39 97.7 F 68 17 118/66 94 PG Care Time/CCT Total # of Minutes Spent Total Time Spent with Patient: Total time spent is greater than 50% in coordination of care (as documented) at patient's floor/unit and/or counseling patient: Coding Level of Care Code 79870 Inpt Consult Level 4 Diagnoses Substernal chest pain R07.2
--- NOTE | 2020-11-07 13:29 | Hospitalist Progress Note ---
Date of Service November 07, 2020 Assessment & Plan (1) Unstable angina: Unstable angina/CAD/PCI in 2016/hypertension- Continue amlodipine 10 mg daily, aspirin 81 mg daily, carvedilol 50 mg p.o. twice daily, isosorbide mononitrate extended release 30 mg every morning and lisinopril 40 mg p.o. daily Temporarily hold furosemide and spironolactone due to acute kidney injury. Nitropaste 1 inch anterior chest wall every 6 hours. Nitroglycerin sublingual Every 5 minutes as needed chest pain ECHO with EF 55-60% and no major wall motion abnormalities Trop neg x3 Cardiology is planning for cath tomorrow given pt's hx Of note, lipase with mild elevation at 571 on admission--possibly mild acute pancreatitis causing sx?? No issues with PO and need to investigate ACS given pt's cardiac hx (2) CAD in [place] artery: See above (3) History of heart artery stent: See above (4) Hypertension: See above (5) Acute kidney injury: Creatinine 1.49 upon admission, with baseline 1.2. Holding furosemide and spironolactone for now Repeat yesterday actually higher at 1.6, but has improved with gentle IVF to 1.4 Continue IVF, but at a lower level given hx of diuretic use that is on hold due to renal function (6) Diabetes: Continue Lantus insulin 36 units subcu at bedtime. Hold Metformin. Placed on Accu-Cheks before meals and at bedtime with NovoLog coverage per scale A1c 8.6 (7) Pure hypercholesterolemia: Continue atorvastatin 40 mg every evening. Check a fasting lipid panel (8) Gout: Continue probenecid (9) Obstructive sleep apnea: Will use CPAP at at bedtime as needed Admission and Anticipated Discharge Date Admission Date: November 06, 2020 Subjective Pt states he had an intense episode of chest pain last night while resting in bed. 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 It lasted about an hour. It has not returned. No SOB with this. Tolerating PO without issue. Pt denies fever, abd pain, n/v/c/d, LE pain or swelling. Review of Systems Review of Systems: Pertinent positives and negatives reviewed in HPI--all others negative Physical Exam Constitutional: WD/WN, vitals as above Eyes: normal visual abel by confrontation and + anicteric sclerae Neck: normal visual inspection and trachea midline Respiratory: normal respiratory effort, lungs clear to auscultation Cardiovascular: Rate/Rhythm: regular rate and regular rhythm Gastrointestinal (Abdomen): Inspection/Auscultation: abdomen not distended Percussion/Palpation: abdomen soft; abdomen nontender Musculoskeletal: Head/Neck/Chest: normocephalic and head atraumatic Skin: no rashes, warm and dry Neurologic: awake; not confused Speech / Cognition: normal speech Psychiatric: A+Ox3, euthymic affect Results & Data Results & Data ([facility]) Vital Signs (Past 12 Hours) Vital Signs Temp Pulse Pulse Resp BP Pulse Ox 11/07/20 11:42 36.7 C 69 20 113/70 93 11/07/20 08:00 62 11/07/20 07:00 37.0 C 68 20 166/87 H 94 11/07/20 03:39 36.5 C 68 17 118/66 94 PG Care Time/CCT Total # of Minutes Spent Total Time Spent with Patient: Total time spent is greater than 50% in coordination of care (as documented) at patient's floor/unit and/or counseling patient: Coding Level of Care Code 24067 Subseq Hosp Care Lvl 3 Diagnoses Unstable angina I20.0 CAD in [place] artery I25.10 History of heart artery stent Z95.5 Hypertension I10 Acute kidney injury N17.9 Diabetes E11.9 Pure hypercholesterolemia E78.00 Gout M10.9 Obstructive sleep apnea G47.33
[2020-11-07] MEDS: INSULIN GLARGINE SOLOSTAR 100 UNITS/ML 3 ML PEN SQ SCH (21:01)
[2020-11-07] MEDS: ATORVASTATIN 40 MG TAB PO SCH (21:03)
[2020-11-08] MEDS: NITROGLYCERIN 2% OINTMENT 30GM TUBE EXT SCH ×4 (00:06→18:22)
[2020-11-08] MEDS: SODIUM CHLORIDE 0.9% 1000ML 1,000 ML IV SCH ×2 (00:09→17:06)
[2020-11-08 07:29] LABS: Albumin Level 3.5 gm/dl (3.4-5.0); BUN Creatinine Ratio 12.9 (10-20); Calcium 8.8 mg/dl (8.5-10.1); Creatinine Clr Calc Pharmacy 60.1 ml/min; Est GFR (African American) 61.7; Est GFR (Non-African American) 53.2; Magnesium 2.3 mg/dl (1.8-2.4); Potassium 4.2 mmol/L (3.5-5.1)
[2020-11-08 07:48] LABS: Phosphorus 3.1 mg/dl (2.5-4.9)
[2020-11-08] MEDS: INSULIN ASPART 100 UNITS/ML 3 ML PEN SC SCH ×4 (08:23→20:45)
[2020-11-08] MEDS: amLODIPine BESYLATE 5 MG TAB PO SCH (08:26)
[2020-11-08] MEDS: SPIRONOLACTONE 25 MG TAB PO SCH (08:26)
[2020-11-08] MEDS: ISOSORBIDE MONO EXTENDED REL 30 MG TABCR PO SCH (08:26)
[2020-11-08] MEDS: MULTIVITAMIN TAB PO SCH (08:26)
[2020-11-08] MEDS: PROBENECID 500 MG TAB PO SCH ×2 (08:26→20:44)
[2020-11-08] MEDS: ASPIRIN 81 MG ECTAB PO SCH (08:26)
[2020-11-08] MEDS: FUROSEMIDE 40 MG TAB PO SCH (08:26)
[2020-11-08] MEDS: lisinopril 40 MG TAB PO SCH (08:26)
[2020-11-08] MEDS: carvediloL 25 MG TAB PO SCH ×2 (08:27→20:44)
--- NOTE | 2020-11-08 11:30 | Electrocardiogram Report ---
Test Reason : Blood Pressure : / mmHG Vent. Rate : 070 BPM Atrial Rate : 070 BPM P-R Int : 210 ms QRS Dur : 116 ms QT Int : 430 ms P-R-T Axes : 043 -18 007 degrees QTc Int : 464 ms Sinus rhythm with 1st degree A-V block Left ventricular hypertrophy with QRS widening Abnormal ECG When compared with ECG of 07-NOV-2020 06:55, No significant change was found Confirmed by Oseas Delatorre ([id number]) on 11/08/2020 11:30:10 AM Referred By: REFERRED SELF Confirmed By:Mane Delatorre
[2020-11-08] MEDS ORDERED: MIDAZOLAM HCL 1 MG/ML 2ML VIAL ONE ×2 (13:04→14:03)
[2020-11-08] MEDS ORDERED: niCARdipine HCL INJ 2.5 MG/ML 10 ML AMP ONE (13:05)
[2020-11-08] MEDS ORDERED: fentaNYL citrate 100 MCG/2 ML VIAL ONE (13:05)
[2020-11-08] MEDS ORDERED: HEPARIN (PORCINE) 1000 UNIT/ML 10 ML (CATH LAB USE ONLY) ONE ×2 (13:05→14:25)
[2020-11-08] MEDS ORDERED: NITROGLYCERIN/D5W 100MCG/ML 20ML SYR ONE (13:06)
--- NOTE | 2020-11-08 13:38 | Pre Anesthesia Assessment ---
Date of Service November 08, 2020 Pre Sedation Assessment Vital Signs Temp Pulse Pulse Resp BP Pulse Ox 11/08/20 12:03 17 145/82 H 96 11/08/20 11:02 97.9 F 66 20 127/73 93 11/08/20 07:30 69 11/08/20 07:11 97.7 F 65 19 144/79 H 94 11/08/20 03:20 97.9 F 74 18 132/70 98 11/07/20 19:00 98.1 F 71 21 164/91 H 94 11/07/20 15:00 98.1 F 73 20 150/84 H 93 Cardiovascular RRR, no murmur, no edema Respiratory normal respiratory effort, lungs clear to auscultation Pre-Sedation Airway Assessment Smoking Status: Never smoker Hx Sleep Apnea: No Hx Difficult Intubation: No Short, Thick Neck: No Thyromental Distance: > or= 3.5 Finger Breadths Oral Cavity: + WNL Mallampati Class: III ASA: ASA3 NPO Status Date of Last Intake of Fluids: 11/07/20 Date of Last Intake of Solid Food: 11/07/20 Procedure Planning Contraindications for Sedation: none Current Medications Reviewed: Yes Notes The planned sedation has been discussed with the patient. Informed Consent was obtained. I have identified the patient, determined the appropriateness of sedation and have assessed the patient immediately prior to the procedure. All medicine(s) and interventions are by my order.
[2020-11-08] MEDS ORDERED: CLOPIDOGREL BISULFATE 300 MG TAB ONE ×2 (15:00→15:01)
--- NOTE | 2020-11-08 15:26 | Post Anesthesia Assessment ---
Date of Service November 08, 2020 Post Sedation Assessment Vital Signs Temp Pulse Pulse Pulse Resp BP Pulse Ox 11/08/20 15:05 75 16 168/92 H 96 11/08/20 12:03 17 145/82 H 96 11/08/20 11:02 97.9 F 66 20 127/73 93 11/08/20 07:30 69 11/08/20 07:11 97.7 F 65 19 144/79 H 94 11/08/20 03:20 97.9 F 74 18 132/70 98 11/07/20 19:00 98.1 F 71 21 164/91 H 94 Recovery Score Activity: Moves 4 extremities Respiration: Deep Breath/Cough Circulation: +/-20% PreAnes Value Consciousness: Fully Awake Oxygen Saturation: > 92% On Room Air Post Anesthesia Score: 10 Discharge Sedation Level of Care: Fast Track Phase II Post Sedation Plan On clinical assessment, the patient appears to have tolerated the sedation without complications. Patient is recovering as anticipated. Patient will continue to be monitored by nursing and may be discharged when sedation discharge criteria are met per below protocol. Upon Completions of procedure up to 15 minutes continue every 5 minute vital signs and the P.A.R. score; then discharge to a Phase I or Fast Track to Phase II per the following guidelines: * Discharge Patient to appropriate Phase II area if PAR is 8 or greater or return to pre- procedure baseline. The post - procedure orders will be as directed. * If PAR score is less than 8 or not return to pre-procedure baseline then patient will follow Phase I monitoring till PAR is reached for Phase II. The Phase I may be done in procedure room or may call to secure a Phase I area. * If naloxone or flumazenil are used for reversal, hold in Phase I for continued monitoring from when last reversal dose was given for a minimum of 60 minutes or longer pending the nurse and/or physician discretion of patient condition before discharge to Phase II. Please call the Sedation Physician to re-evaluate and complete post-note for discharge to Phase II area. Do NOT discharge from procedure sedation or Phase 1 until post- sedation evaluation note is complete by procedure /sedation MD Sedation Discharge Instructions to be given to the patient at discharge to home.
--- NOTE | 2020-11-08 15:34 | Cardiac Catheterization ---
ACC Data: Caseworker Cardiac Status Clinical evaluation leading to the procedure CAD Presenation: Unstable angina Anginal Classification: CCS IV Heart Failure: No Cardiogenic Shock within 24 Hours: No Cardiac Arrest within 24 Hours: No Imaging Studies Past 6 Months: Yes Stress Studies Past 6 Months: No Diagnostic Physicians Name: Oseas Root MD Status: Elective Closure Device Percutaneous Entry Location: Radial Closure Device: Radial Band Recommendations: PCI without planned CABG PCI Indication: Angina despite med therapy and Unstable Angina Lesion Segment Name: mid LAD Culprit Artery: Yes Stenosis Prior to Rx (%): 80 Chronic Total Occlusion: No IVUS: No FFR: No Pre-Procedure ROBYN Flow: 3 Previously Treated Lesion: No Lesion Complexity: Non-High/Non-C Thrombus Present: No Bifurcation Lesion: No Guidewire Across Lesion: Stenosis Post-Procedure (%): 0 Post-Procedure ROBYN Flow: 3 Devices(s) Deployed: Yes Yes Lesion #2 Segment Name: mid RCA Culprit Artery: Yes Stenosis Prior to Rx (%): 70 Chronic Total Occlusion: No IVUS: No FFR: No Pre-Procedure ROBYN Flow: 3 Previously Treated Lesion: No Lesion Complexity: Non-High/Non-C Lesion Length (mm): 12 Thrombus Present: No Bifurcation Lesion: No Guidewire Across Lesion: Yes Stenosis Post-Procedure (%): 0 Post-Procedure ROBYN Flow: 3 Devices(s) Deployed: Yes Intraprocedure Events Significant Disection: No Perforation: No Cardiac Cath Procedure Full Procedure Date November 08, 2020 Pre-Procedure Diagnosis Pre-Procedure Diagnosis: Acute Coronary Syndrome AUC Score AUC Score: 7 Post-Procedure Diagnosis Post-Procedure Diagnosis: Severe CAD, Successful PCI and Normal Intracardiac Pressures Procedure(s) Performed Procedure(s) Performed: Coronary Angiography, Left Heart Cath and Drug Eluting Stent Cashier Courtesy Booth Oseas Root MD Instructor Bridge(s) Rober Estimated Blood Loss Estimated Blood Loss: 15 Medication(s) Medication(s): Clopidogrel, Fentanyl, Heparin, Lidocaine 1%, Nicardipine, Nitroglycerin and Versed Summary of Findings Indication: Unstable angina Access: 6 Fr right radial artery Catheters: [place], 5 Fr EBU 3.5 guide, 5 Fr JR4 guide Findings: LM -large caliber no significant disease LAD -medium caliber, 30% proximal disease, 70 to 80% mid segment stenosis after takeoff of first septal, latemid and distal LAD with luminal irregularities as wraps around apex. Bifurcating first diagonal with 50% proximal stenosis, small inferior branch of D1 with 80% proximal stenosis. Circumflex -medium caliber, 40% proximal stenosis, distal luminal regularities. Medium caliber OM2 60% ostial stenosis. RCA -dominant, medium caliber, 70% hazy/calcified mid segment stenosis, distal stent widely patent. Large right PDA without significant disease. LVEDP -15 -- PCI -- Antithrombotic therapy: Heparin, clopidogrel Procedure: Left main cannulated with EBU 3.5 guide BMW wire passed across lesion into distal vessel Mid LAD lesion predilated with 2.5 compliant balloon Dilated lesion stented with 2.75 x 18 mm Klaus drug-eluting stent Stent post-dilated with 3.0 noncompliant balloon IC vasodilators administered for spasm Post procedure ROBYN 3 flow, stent well expanded with minimal residual stenosis and no apparent cardiac complications. RCA cannulated with JR4 guide BMW wire passed across mid segment lesion into distal vessel Mid RCA dilated with 2.5 balloon With the aid of a oversize load pilot escort 50 jumana wire 3.0 x 15 mm Tarzan FINN placed across mid RCA stenosis Stent postdilated with 3.5 NC balloon IC vasodilators administered for spasm Post procedure ROBYN 3 flow, stent well expanded with minimal residual stenosis and no apparent cardiac complications. Arterial Closure: TR band Summary: 1. Severe multivessel coronary artery disease -70 to 80% mid LAD 70% mid RCA. Patent distal RCA stent Moderate to severe branch vessel disease (50% proximal D1, 60% proximal OM2) 2. Normal intracardiac filling pressure 3. Successful PCI of mid LAD with single drug-eluting stent (2.75 x 18 mm Tarzan; postdilated with 3.0 NC). 4. Successful PCI of mid RCA with single drug-eluting stent (3.0 x 15 mm Tarzan; postdilated with 3.5 NC). Recommendations: To PCU for continued monitoring Loaded with clopidogrel 600 mg in Caseworker Continue dual-antiplatelet therapy for at least 1 year Consult cardiac Rehab Maximize antianginal therapy. If refractory exertional symptoms in the future could consider possible PCI to proximal OM1. Hemodynamics Rest Ao:: 105/65/83 Final Ao: 155/55/58 LV: 105/15 Recommendations Recommendations: PCI without planned CABG Specimens Specimens: None Radiation Exposure (mGy) 4437 Contrast (mls) 130 Fluids (cc crystalloids) Fluids (cc crystalloids): 164 Drains Drains: none Anesthesia moderate Procedural Complication(s) None Disposition PCU I attest to the content of the Intraoperative Record and any orders documented therein. Any exceptions are noted below. [facility] Card Cath Procedure Codes Cardiac Catheterization Procedure 1: Cardiovascular Cath Procedures: 68507 Coronaries and LHC (+/-LV) Moderate Sedation Procedure 1: Sedation/Anesthesia: 49751 Mod Sedation by the same physician;Init15 Min Child Age 5 & Up Procedure 2: Sedation/Anesthesia: 70908 Mod Sedation by the same physician; Ea [id number] Minutes Stenting Procedure 1: Cardiovascular Stent Procedures: 58730 Perc transcatheter placement of intracoronary stent(s), with ang Procedure 2: Cardiovascular Stent Procedures: 64697 Ea addl branch of a major coronary artery PG Care Time/CCT Total # of Minutes Spent Total Time Spent with Patient: Total time spent is greater than 50% in coordination of care (as documented) at patient's floor/unit and/or counseling patient:
--- NOTE | 2020-11-08 20:13 | Hospitalist Progress Note ---
Date of Service November 08, 2020 Assessment & Plan (1) Unstable angina: Unstable angina/CAD/PCI in 2016/hypertension- Presented with chest pain reminiscent of his prior [place] Lipase was mildly elevated but this pain does not seem like pain of acute pancreatitis Troponin negative x3, but had ongoing recurrent chest pain relieved with nitrates ECHO with EF 55-60% and no major wall motion abnormalities Now status post cardiac catheterization on 11/08-showed: Summary: 1. Severe multivessel coronary artery disease -70 to 80% mid LAD 70% mid RCA. Patent distal RCA stent Moderate to severe branch vessel disease (50% proximal D1, 60% proximal OM2) 2. Normal intracardiac filling pressure 3. Successful PCI of mid LAD with single drug-eluting stent (2.75 x 18 mm Klaus; postdilated with 3.0 NC). 4. Successful PCI of mid RCA with single drug-eluting stent (3.0 x 15 mm Klaus; postdilated with 3.5 NC). Recommendations: To PCU for continued monitoring Loaded with clopidogrel 600 mg in Desktop Support Consultant Continue dual-antiplatelet therapy for at least 1 year Consult cardiac Rehab Maximize antianginal therapy. If refractory exertional symptoms in the future could consider possible PCI to proximal OM1. -Continue amlodipine 10 mg daily, aspirin 81 mg daily, Plavix, carvedilol 50 mg p.o. twice daily, isosorbide mononitrate extended release 30 mg every morning -Holding home lisinopril 40 mg p.o. daily for MAIN - hold furosemide and spironolactone due to acute kidney injury especially after receiving contrast for catheterization today (2) CAD in [place] artery: See above (3) History of heart artery stent: See above (4) Hypertension: Blood pressures are controlled to mildly elevated Continue amlodipine, carvedilol, isosorbide Holding home lisinopril, Lasix, spironolactone (5) Acute kidney injury: Creatinine 1.49 upon admission, with baseline 1.2. Creatinine stable today at 1.43 He has been receiving his diuretics-places on hold today Hold lisinopril Received IV fluid hydration Follow BMP in the morning (6) Diabetes: Continue Lantus insulin 36 units subcu at bedtime. Hold Metformin. Placed on Accu-Cheks before meals and at bedtime with NovoLog coverage per scale A1c 8.6 (7) Pure hypercholesterolemia: Continue atorvastatin 40 mg every evening. (8) Gout: No acute issues Continue probenecid (9) Obstructive sleep apnea: Continue CPAP at bedtime at 8 cm H2O (10) DVT prophylaxis: Dual antiplatelet therapy, SCDs Disposition-continued stay on PCU, could possibly go home tomorrow if stable Admission and Anticipated Discharge Date Admission Date: November 06, 2020 Subjective Patient did not have any chest pain overnight. He was currently awaiting cardiac catheterization I saw him this morning. He denies shortness of breath, no nausea or vomiting. Denies any other problems. Telemetry with normal sinus rhythm with rates in the 60s. Review of Systems Review of Systems: All systems reviewed & are unremarkable except as noted in HPI & below Physical Exam Constitutional: WD/WN, vitals as above Eyes: + anicteric sclerae Neck: trachea midline, no thyromegaly Respiratory: normal respiratory effort, lungs clear to auscultation Cardiovascular: RRR, no murmur, no edema Chest (Breasts): Chest: normal inspection of chest Gastrointestinal (Abdomen): normal bowel sounds, soft, nontender, no hepatosplenomegaly Musculoskeletal: Extremities: extremities normal to inspection; no cyanosis and no clubbing Skin: no rashes, warm and dry Neurologic: moves all extremities and awake; no focal motor deficits Psychiatric: A+Ox3, euthymic affect Lymphatic: no lymphedema Results & Data Results & Data ([facility]) Vital Signs (Past 12 Hours) Vital Signs Temp Pulse Pulse Pulse Pulse Resp BP 11/08/20 18:54 36.7 C 78 18 158/87 H 11/08/20 18:21 80 14 144/67 H 11/08/20 17:21 75 14 178/91 H 11/08/20 16:49 76 14 176/96 H 11/08/20 16:23 66 14 172/90 H 11/08/20 16:08 69 14 164/92 H 11/08/20 15:53 66 60 20 161/90 H 11/08/20 15:28 36.5 C 65 18 11/08/20 15:05 75 16 11/08/20 12:03 17 11/08/20 11:02 36.6 C 66 20 BP Pulse Ox 11/08/20 18:54 95 11/08/20 18:21 95 11/08/20 17:21 11/08/20 16:49 11/08/20 16:23 11/08/20 16:08 97 11/08/20 15:53 11/08/20 15:28 157/95 H 96 11/08/20 15:05 168/92 H 96 11/08/20 12:03 145/82 H 96 11/08/20 11:02 127/73 93 Laboratory Results 11/08/20 11/08/20 11/08/20 Range/Units 16:02 14:52 14:22 Activ Coag Time Kaolin 279 H 246 H (94-140) SECONDS Sodium (136-145) mmol/L Potassium (3.5-5.1) mmol/L Chloride (98-107) mmol/L Carbon Dioxide (21-32) mmol/L Anion Gap (3-11) BUN (7-18) mg/dl Creatinine (0.6-1.4) mg/dl Est Cr Clr Drug Dosing ml/min Est GFR ( Amer) Est GFR (Non-Af Amer) BUN/Creatinine Ratio (10-20) Glucose (70-99) mg/dl POC Glucose 156 H (70-99) mg/dl Calcium (8.5-10.1) mg/dl Phosphorus (2.5-4.9) mg/dl Magnesium (1.8-2.4) mg/dl Albumin (3.4-5.0) gm/dl 11/08/20 11/08/20 11/08/20 Range/Units 11:14 07:10 06:07 Activ Coag Time Kaolin (94-140) SECONDS Sodium 138 (136-145) mmol/L Potassium 4.2 (3.5-5.1) mmol/L Chloride 104 (98-107) mmol/L Carbon Dioxide 28 (21-32) mmol/L Anion Gap 6.0 (3-11) BUN 18 (7-18) mg/dl Creatinine 1.43 H (0.6-1.4) mg/dl Est Cr Clr Drug Dosing 60.1 ml/min Est GFR ( Amer) 61.7 Est GFR (Non-Af Amer) 53.2 BUN/Creatinine Ratio 12.9 (10-20) Glucose 172 H (70-99) mg/dl POC Glucose 164 H 165 H (70-99) mg/dl Calcium 8.8 (8.5-10.1) mg/dl Phosphorus 3.1 (2.5-4.9) mg/dl Magnesium 2.3 (1.8-2.4) mg/dl Albumin 3.5 (3.4-5.0) gm/dl 11/07/20 Range/Units 20:33 Activ Coag Time Kaolin (94-140) SECONDS Sodium (136-145) mmol/L Potassium (3.5-5.1) mmol/L Chloride (98-107) mmol/L Carbon Dioxide (21-32) mmol/L Anion Gap (3-11) BUN (7-18) mg/dl Creatinine (0.6-1.4) mg/dl Est Cr Clr Drug Dosing ml/min Est GFR ( Amer) Est GFR (Non-Af Amer) BUN/Creatinine Ratio (10-20) Glucose (70-99) mg/dl POC Glucose 147 H (70-99) mg/dl Calcium (8.5-10.1) mg/dl Phosphorus (2.5-4.9) mg/dl Magnesium (1.8-2.4) mg/dl Albumin (3.4-5.0) gm/dl PG Care Time/CCT Total # of Minutes Spent Total Time Spent with Patient: Total time spent is greater than 50% in coordination of care (as documented) at patient's floor/unit and/or counseling patient: Coding Level of Care Code 04847 Subseq Hosp Care Lvl 3 Diagnoses Unstable angina I20.0 CAD in [place] artery I25.10 History of heart artery stent Z95.5 Hypertension I10 Acute kidney injury N17.9 Diabetes E11.9 Pure hypercholesterolemia E78.00 Gout M10.9 Obstructive sleep apnea G47.33 DVT prophylaxis Z29.9
[2020-11-08] MEDS: ATORVASTATIN 40 MG TAB PO SCH (20:44)
[2020-11-08] MEDS: INSULIN GLARGINE SOLOSTAR 100 UNITS/ML 3 ML PEN SQ SCH (20:45)
[2020-11-09 06:48] LABS: Basophils # (auto) 0.02 K/uL (0-0.2); Basophils % (auto) 0.2 %; Eosinophils # (auto) 0.24 K/uL (0-0.5); Eosinophils % (auto) 2.3 %; Hematocrit (blood only) 39.7 % (42-52); Hemoglobin 13.1 g/dL (14.0-18.0); Immature Granulocytes # (auto) 0.01 K/uL (0.00-0.02); Immature Granulocytes % (auto) 0.1 %; Lymphocytes # (auto) 1.57 K/uL (1.2-3.4); Lymphocytes % (auto) 15.2 %; Mean Corpuscular Hemoglobin 28.7 pg (25-34); Mean Corpuscular Volume 86.9 fL (80-100); Monocytes # (auto) 1.01 K/uL (0.11-0.59); Monocytes % (auto) 9.8 %; Neutrophils # (auto) 7.48 K/uL (1.4-6.5); Neutrophils % (auto) 72.4 %; Platelet Count 326 K/uL (130-400); RDW Standard Deviation 44.5 fL (36.4-46.3); Red Blood Count 4.57 M/uL (4.7-6.1); White Blood Count 10.33 K/uL (4.8-10.8)
[2020-11-09 07:13] LABS: BUN Creatinine Ratio 10.7 (10-20); Calcium 9.3 mg/dl (8.5-10.1); Creatinine Clr Calc Pharmacy 61.6 ml/min; Est GFR (African American) 63.8; Est GFR (Non-African American) 55.1; Magnesium 2.1 mg/dl (1.8-2.4); Potassium 3.7 mmol/L (3.5-5.1)
[2020-11-09] MEDS: INSULIN ASPART 100 UNITS/ML 3 ML PEN SC SCH (07:53)
[2020-11-09] MEDS: MULTIVITAMIN TAB PO SCH (08:06)
[2020-11-09] MEDS: ISOSORBIDE MONO EXTENDED REL 30 MG TABCR PO SCH (08:06)
[2020-11-09] MEDS: ASPIRIN 81 MG ECTAB PO SCH (08:06)
[2020-11-09] MEDS: PROBENECID 500 MG TAB PO SCH (08:06)
[2020-11-09] MEDS: amLODIPine BESYLATE 5 MG TAB PO SCH (08:06)
[2020-11-09] MEDS: carvediloL 25 MG TAB PO SCH (08:07)
[2020-11-09] MEDS ORDERED: CLOPIDOGREL BISULFATE 75 MG TAB PO SCH (09:00)
[2020-11-09] MEDS ORDERED: POTASSIUM CHLORIDE CRTAB 20 MEQ TABCR PO STA (09:01)
[2020-11-09 10:39] VITALS: BP 106/66; PULSE 72; TEMP 98.1; O2SAT 93
--- NOTE | 2020-11-09 11:20 | Cardiology Progress Note ---
Date of Service November 09, 2020 Assessment & Plan (1) CAD in [place] artery: --New multivessel diseasepost PCI to LAD, mid RCA Residual branch vessel disease and D1, OM 2 2. Type 2 diabeteson metformin, insulin, A1c 8 point 3. Hypertension--on 5 agents at home 4. Hyperlipidemia 5. Stage III CKD 6. Obstructive sleep apnea Patient doing well today following PCI. No recurrent chest pain. No apparent access site complications. Stable on telemetry. From a cardiac standpoint okay with discharge today. Home on DAPT with aspirin, clopidogrel. Resume home antihypertensive regimen. Follow-up in 2 weeks. Instructed patient to hold off on going back to work until next week. Admission and Anticipated Discharge Date Admission Date: November 06, 2020 Subjective Feeling well today. No chest pain. No significant pain at access site. Telemetry reviewedno events Review of Systems Review of Systems: All systems reviewed & are unremarkable except as noted in HPI & below Physical Exam Physical Exam: General: Comfortable HEENT: Sclerae anicteric, Mask in place Lungs: Clear to auscultation bilaterally Cardiac: Regular rate and rhythm, no murmurs. Vascular: 2+ radial, DP and PT pulses. No Bruits. Abdomen: Soft, nontender Extremities: Well perfused, no peripheral edema Neuro: Nonfocal Psych: Alert orient x3, normal affect and mood Results & Data ([facility]) Vital Signs (Past 12 Hours) Vital Signs Temp Pulse Pulse Pulse Resp BP BP 11/09/20 10:39 98.1 F 72 18 106/66 11/09/20 07:00 98.4 F 71 72 15 158/85 H 11/09/20 04:37 98.1 F 82 18 148/83 H 11/08/20 23:47 98.6 F 72 18 123/72 Pulse Ox 11/09/20 10:39 93 11/09/20 07:00 96 11/09/20 04:37 94 11/08/20 23:47 97 PG Care Time/CCT Total # of Minutes Spent Total Time Spent with Patient: Total time spent is greater than 50% in coordination of care (as documented) at patient's floor/unit and/or counseling patient: Coding Level of Care Code 37826 Subseq Hosp Care Lvl 3 Diagnoses CAD in [place] artery I25.10
--- NOTE | 2020-11-09 11:55 | Discharge Summary ---
Date of Service November 09, 2020 Admission HPI Per Admitting Provider The patient is a 60-year-old male with a past medical history including myxofibrosarcoma of skin, CAD of [place] coronary artery, gout, VANDANA, hypercholesterolemia, diabetes mellitus, hypertension, stented coronary artery, and presyncope. The patient presents to the emergency department symptoms as noted above. Principal Diagnosis Unstable angina Discharge Exam Constitutional WD/WN, vitals as above Eyes + anicteric sclerae Neck trachea midline, no thyromegaly Respiratory normal respiratory effort, lungs clear to auscultation Cardiovascular RRR, no murmur, no edema Chest (Breasts) Chest: normal inspection of chest Gastrointestinal (Abdomen) normal bowel sounds, soft, nontender, no hepatosplenomegaly Musculoskeletal Extremities: extremities normal to inspection; no cyanosis and no clubbing Skin no rashes, warm and dry Neurologic moves all extremities and awake; no focal motor deficits Psychiatric A+Ox3, euthymic affect Lymphatic no lymphedema Discharge Data Allergies Allergy/AdvReac Type Severity Reaction Status Date / Time No Known Drug Allergies Allergy Unknown Verified 11/05/20 23:46 Consultations 11/06/20 00:28 ED Decision to Admit Stat 11/06/20 01:35 Consult Case Management - Discharge Planning Routine 11/06/20 13:30 Consult Cardiology Routine 11/08/20 17:40 Consult Cardiac Rehabilitation Routine Procedures Performed Operation Date: 11/08/20 12:30 Actual Procedures s Cineradiography w/Routine Exam - Michael Root MD p Drug Eluting Stent SGl Vessel - Michael Root MD p Cath, Left with Cors and Vent - Michael Root MD s Drug Eluting Stent each ADDTL Vessel - Michael Root MD Ordered Studies 11/08/20 06:52 CL Cath Imgs for PACS use only Routine CXR Hospital Course (1) Unstable angina: Unstable angina/CAD/PCI in 2016/hypertension- Presented with chest pain reminiscent of his prior CT Lipase was mildly elevated but this pain does not seem like pain of acute pancreatitis Troponin negative x3, but had ongoing recurrent chest pain relieved with nitrates ECHO with EF 55-60% and no major wall motion abnormalities Now status post cardiac catheterization on 11/08-showed: Summary: 1. Severe multivessel coronary artery disease -70 to 80% mid LAD 70% mid RCA. Patent distal RCA stent Moderate to severe branch vessel disease (50% proximal D1, 60% proximal OM2) 2. Normal intracardiac filling pressure 3. Successful PCI of mid LAD with single drug-eluting stent (2.75 x 18 mm [place]; postdilated with 3.0 NC). 4. Successful PCI of mid RCA with single drug-eluting stent (3.0 x 15 mm [place]; postdilated with 3.5 NC). Recommendations: To PCU for continued monitoring Loaded with clopidogrel 600 mg in [employer] Continue dual-antiplatelet therapy for at least 1 year with ASA and Plavix Consult cardiac Rehab Maximize antianginal therapy. If refractory exertional symptoms in the future could consider possible PCI to proximal OM1. -Continue amlodipine 10 mg daily, aspirin 81 mg daily, Plavix, carvedilol 50 mg p.o. twice daily, isosorbide mononitrate extended release 30 mg every morning -Held home lisinopril 40 mg p.o. 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 Creatinine improved to 1.39 with holding diuretics and lisinopril Received IV fluid hydration (6) Diabetes: Continue Lantus insulin 36 units subcu at bedtime. Hold Metformin. Placed on Accu-Cheks before meals and at bedtime with NovoLog coverage per scale A1c 8.6 (7) Pure hypercholesterolemia: Continue atorvastatin 40 mg every evening. (8) Gout: No acute issues Continue probenecid (9) Obstructive sleep apnea: Continue CPAP at bedtime at 8 cm H2O (10) DVT prophylaxis: Dual antiplatelet therapy, SCDs Disposition-stable for dc to home Total Time Total Time Spent Total Time Spent (In Minutes): 35 min Total Time Includes: Examination of the Patient, Discharge Planning, Medication Reconciliation and Communication With Other Providers (Cardiology) Discharge Plan Discharge Items Patient Disposition: Home - Self-Care Reason For Visit: unstable angina Discharge Diagnosis: Unstable angina, Severe CAD Condition on Discharge: Good Activity: As commented below Driving/Machine Use: Resume 3 days after discharge Non-emergency contact: Primary Care Provider Call non-emergency contact if: you have any medication questions, your symptoms worsen and your pain is not controlled Follow-up/Referrals: Michael Root MD [Primary Care Provider] - (Follow up within 2 weeks) Diet: Carb Consistent or DM2 and Heart Healthy Addtl Attending Provider Instructions: You were admitted for chest pains related to your heart disease and had stents placed. It is very important that you take PLAVIX along with your ASPIRIN every day. Your other medications are staying the same. Please follow up with your PCP at the [facility]/Dr. Root within 2 weeks. ACTIVITY RECOMMENDATIONS: Excess manipulation of the wrist should be avoided for the next 24-48 hours. * No lifting over 2 pounds (approximately a 1/2 gallon of milk) with the utilized arm for 24 hours. * No strenuous activity such as bowling or tennis for 3 days. * Keep the site of the procedure covered with a bandage for 24 hours. *You may shower the day after the procedure. Do not take a tub bath or submerge the puncture site in water for the next 3 days. *Do not operate any motorized equipment for 3 days. SPECIAL CARE INSTRUCTIONS: The site may be slightly bruised and sore following your procedure. Should any of the following occur, contact the Dr. who performed your procedure. 1. Redness/inflammation, swelling, chills, or fever, or colored drainage at procedure site within 3-7 days after your procedure. 2. Coldness, discoloration, ongoing numbness, severe pain, or swelling. Expect mild tingling of hand and tenderness at the puncture site for up to three days. If this persists beyond three days, or other symptoms develop, notify the Dr. who performed your procedure. BLEEDING: If the procedure site on your wrist begins to bleed, do not panic 1. Place 1 or 2 fingers firmly just slightly above the insertion site to stop th e bleeding. You may be able to feel your pulse as you hold pressure. 2. Lift your finger after 5 minutes to see if the bleeding has stopped. 3. Once the bleeding has stopped, gently wipe the wrist area clean with a bandage. * If the bleeding from your wrist does not stop after 10 minutes, or if there is a large amount of bleeding or spurting, call 911 ([address] not drive yourself to the hospital). SKIN IRRITATION: * You may experience some redness and/or swelling in the area where radiation was administered. If any skin irritation occurs, please contact your family physician. FOLLOW UP VISIT: Keep any scheduled doctor appointments. Pending Studies at Discharge: No Stand-Alone Forms: My [facility], Work/School Release (Inpt) Medications and DC Order Prescriptions: New clopidogrel 75 mg Tablet 75 mg PO QAM Qty: 30 RF: 0 Continued amlodipine 10 mg tablet 10 mg PO DAILY Qty: 30 RF: 0 aspirin 81 mg tablet,delayed release (DR/EC) 81 mg PO DAILY Qty: 30 RF: 0 lisinopril 40 mg tablet 40 mg PO DAILY RF: 0 metformin 1,000 mg tablet 1,000 mg PO BID RF: 0 probenecid 500 mg tablet 500 mg PO BID RF: 0 multivitamin [Daily Multi-Vitamin] tablet 1 tab PO DAILY RF: 0 carvedilol 25 mg tablet 50 mg PO BID RF: 0 atorvastatin 80 mg tablet 40 mg PO QPM RF: 0 Lantus U-100 Insulin 100 unit/mL solution 36 units SQ HS RF: 0 Novolog Flexpen U-100 Insulin 100 unit/mL (3 mL) insulin pen See Rx Instructions SQ DAILY RF: 0 spironolactone 25 mg tablet 25 mg PO DAILY RF: 0 isosorbide mononitrate 60 mg tablet extended release 24 hr 30 mg PO DAILY RF: 0 glucose 4 gram tablet,chewable 4 gm PO Q15M PRN (Reason: hypoglycemia) Qty: 0 RF: 0 Changed furosemide 40 mg tablet 40 mg PO DAILY PRN (Reason: leg swelling) Qty: 0 RF: 0 Discharge Orders: Discharge Order (Routine); Ordered 11/09/20 Ordered By: Radha Cooley/Other Patient Handouts: Managing Type 2 Diabetes Admission Data Admit Date/Time: 11/06/20 01:12 Attending Provider: Radha Salinas Admit Provider: Thierry Limon Primary Care Provider: Michael Root Other Providers: Thierry Limon ; Root,Michael R. Coding Level of Care Code D/C Day Management >30 mins Diagnoses Unstable angina I20.0 CAD in [place] artery I25.10 History of heart artery stent Z95.5 Hypertension I10 Acute kidney injury N17.9 Diabetes E11.9 Pure hypercholesterolemia E78.00 Gout M10.9 Obstructive sleep apnea G47.33 DVT prophylaxis Z29.9
== END 2020-11-09 12:29 | disposition home or self-care (01) ==
LOC: ED 23:28 → INTOOBSV 11-06 01:12 → SUATTDRO 11-06 01:12 → 2S 11-06 01:12
DX: E78.00 Pure hypercholesterolemia, unspecified; C49.9 Malignant neoplasm of connective and soft tissue, unspecified; M10.9 Gout, unspecified; E11.22 Type 2 diabetes mellitus with diabetic chronic kidney disease; Z79.899 Other long term (current) drug therapy; Z79.82 Long term (current) use of aspirin; I25.110 Atherosclerotic heart disease of native coronary artery with unstable angina pectoris; Z95.5 Presence of coronary angioplasty implant and graft; N18.30 Chronic kidney disease, stage 3 unspecified; G47.33 Obstructive sleep apnea (adult) (pediatric); N17.9 Acute kidney failure, unspecified; Z79.4 Long term (current) use of insulin; I12.9 Hypertensive chronic kidney disease with stage 1 through stage 4 chronic kidney disease, or unspecified chronic kidney disease